=== PATIENT | male | born 1995 | race Caucasian/White ===

== ENCOUNTER 2022-02-26 04:22 | Emergency (ER) | payer SELFPAY ==
[~2022-02-26] VITALS: Ht 175.3 cm; Wt 73.0 kg
[2022-02-26 04:28] VITALS: BP 144/76
[2022-02-26] MEDS ORDERED: LIDOCAINE HCL 1% 20ML VIAL (Pyxis) INJ INFIL ONE (08:15)
[2022-02-26] MEDS ORDERED: TETANUS, DIPHTHERIA, PERTUSSIS VAC/PF 0.5ML (>10YR OLD) IM ONE ×2 (08:15→10:45)
[2022-02-26] MEDS ORDERED: LIDOCAINE HCL 1% 10 MG/ML 5ML VIAL INJ NR (10:00)
== END 2022-02-26 13:43 | disposition home or self-care (01) ==
LOC: ER 04:22
DX: S71.111A Laceration without foreign body, right thigh, initial encounter (principal); X58.XXXA Exposure to other specified factors, initial encounter; Y93.89 Activity, other specified; Y92.89 Other specified places as the place of occurrence of the external cause; Y99.8 Other external cause status; M79.18 Myalgia, other site
CPT/HCPCS: 12002; 73562; 90471; 90715; 99283; J3490

== ENCOUNTER 2022-03-08 16:12 | Emergency (ER) | payer SELFPAY ==
[~2022-03-08] VITALS: Ht 167.6 cm; Wt 75.0 kg
[2022-03-08 16:37] VITALS: BP 121/66
== END 2022-03-08 19:30 | disposition home or self-care (01) ==
LOC: ER 16:12
DX: Z48.02 Encounter for removal of sutures (principal); I10 Essential (primary) hypertension
CPT/HCPCS: 99281; Z7610

== ENCOUNTER 2022-03-11 13:59 | Emergency (ER) | payer SELFPAY ==
[~2022-03-11] VITALS: Ht 162.6 cm; Wt 76.3 kg
[2022-03-11 14:47] VITALS: BP 113/61
[2022-03-11] MEDS ORDERED: CEPH500C2 MT (15:07)
== END 2022-03-11 15:42 | disposition home or self-care (01) ==
LOC: ER 13:59
DX: L03.115 Cellulitis of right lower limb (principal)
CPT/HCPCS: 99283

== ENCOUNTER 2024-07-05 00:33 | Emergency (ER) | payer MEDICAID ==
[~2024-07-05] VITALS: Ht 157.5 cm; Wt 73.0 kg
[~2024-07-05 00:33] MED LIST: CEPH500C2 MT
[2024-07-05 00:37] VITALS: BP 119/67; PULSE 98; RESP 20; TEMP 37.1; O2SAT 97
[2024-07-05 04:47] LABS: CALCIUM 9.3 mg/dL (8.7-10.4); CARBON DIOXIDE 21 mEq/L (21-32); CHLORIDE 106 mEq/L (98-107); CREATININE 0.8 mg/dL (0.6-1.3); ETHANOL BLOOD 205 mg/dL (<10); GLUCOSE 114 mg/dL (70-105); POTASSIUM 3.9 mEq/L (3.5-5.1); SODIUM 140 mEq/L (136-145); UREA NITROGEN BLOOD 8 mg/dL (9-23)
[2024-07-05 04:49] LABS: BASOPHILS % 0.9 % (0.0-2.0); DIFFERENTIAL COMMENT 0; EOSINOPHILS % 3.5 % (0.0-5.0); HEMATOCRIT. 49.4 % (42.0-52.0); HEMOGLOBIN. 16.9 g/dL (14.0-18.0); LYMPHOCYTES % 31.8 % (20.0-50.0); MEAN CORPUSCULAR HEMOGLOBIN 30.6 pg (28.0-32.0); MEAN CORPUSCULAR HGB CONC 34.2 g/dL (31.0-37.0); MEAN CORPUSCULAR VOLUME 89.3 fL (80.0-94.0); MEAN PLATELET VOLUME 11.2 fl (7.4-10.4); MONOCYTES % 5.1 % (2.0-8.0); NEUTROPHILS % 58.7 % (40.0-76.0); PLATELET 176 x1000/uL (130-400); RED BLOOD CELL COUNT 5.53 mill/uL (4.7-6.1); RED CELL DISTRIBUTION WIDTH 13.8 % (11.6-14.6); WHITE BLOOD COUNT 8.2 x1000/uL (4.5-11.0)
[2024-07-05] MEDS ORDERED: IBUP-2029 MT (05:22)
[2024-07-05] MEDS ORDERED: TOPUD PO (05:22)
== END 2024-07-05 05:39 | disposition home or self-care (01) ==
LOC: ER 00:33
DX: F10.129 Alcohol abuse with intoxication, unspecified (principal); Y90.7 Blood alcohol level of 200-239 mg/100 ml
CPT/HCPCS: 80048; 80320; 85025; 36415; 70450; 70486; 99284; Z7610; G0480